=== PATIENT | female | born 1950 | race Caucasian/White ===

== ENCOUNTER → 2017-03-10 | Outpatient (CLI) | payer MEDICARE, OTHER ==
[~2017-03-10] MED LIST: AMOX500C2; CALC-20; MULT-608; PRV20T
--- NOTE | 2017-03-10 15:50 | Diagnostic Imaging Report ---
PROCEDURE: CT right upper extremity without contrast. TECHNIQUE: Multiple contiguous axial images were obtained through the right shoulder without the use of intravenous contrast. Sagittal and coronal reformations were then performed. INDICATION: Right upper extremity tremors. FINDINGS: The glenohumeral and acromioclavicular alignment appear normal. No fractures are identified. The scapula is unremarkable. The right axilla is unremarkable. The visualized right-sided ribs are intact. The soft tissues are unremarkable. IMPRESSION: Unremarkable CT of the right shoulder. Dictated by: Dictated on workstation # [id number]
--- NOTE | 2017-03-10 16:08 | Diagnostic Imaging Report ---
PROCEDURE: CT head and CT cervical spine without contrast. TECHNIQUE: Multiple contiguous axial images were obtained through the brain and cervical spine without the use of intravenous contrast. Sagittal and coronal reformations through the cervical spine were then performed. INDICATION: Right arm tremors. CT BRAIN: No prior studies are available for comparison. The ventricles and sulci are within normal limits. No sulcal effacement, midline shift or hemorrhage is detected. Cisterns are patent. The visualized paranasal sinuses are clear. IMPRESSION: No acute intracranial process is detected. CT CERVICAL SPINE: There is straightening of the normal cervical lordotic curvature. Minimal anterolisthesis of C3 on C4 and C4 on C5 is noted. There is significant degenerative disc disease at the C5-6 and C6-7 levels, with disc space narrowing and marginal spurring. There is also multilevel facet arthropathy. The prevertebral tissues are normal. No fractures are identified. IMPRESSION: Cervical spondylosis. No acute bony abnormality is detected. Report called & faxed to Dr. Hill's office ([place]) at 4:07 p.m. 03/10/2017/dane CT upper extremity report called & faxed as well. Dictated by: Dictated on workstation # [id number]
== END ==
LOC: RAD 14:55
PROVIDERS: ATTEND Internal Medicine
DX: M47.812 Spondylosis without myelopathy or radiculopathy, cervical region (principal); R25.1 Tremor, unspecified
CPT/HCPCS: 70450; 72125; 73200

== ENCOUNTER → 2017-03-13 | Outpatient (CLI) | payer MEDICARE, OTHER ==
--- NOTE | 2017-03-13 11:59 | Diagnostic Imaging Report ---
PROCEDURE: MR imaging cervical spine without contrast. TECHNIQUE: Multiplanar, multisequence MR imaging of the cervical spine was performed without contrast. INDICATION: Neck pain and right arm pain with numbness and tingling for six weeks. No prior studies are available for comparison. There is some straightening of the normal cervical lordotic curvature. The vertebral body marrow signal is normal. No geographic marrow lesion is seen. There is significant degenerative disc disease at C5-C6 and C6-7 levels, with disc space narrowing and desiccation as well as marginal osteophyte formation. The cervical cord demonstrates homogeneous signal intensity and normal morphology. C2-C3, C3-C4 and C4-C5 levels are without evidence of central canal or neuroforaminal stenosis. C5-C6 level is also without central canal or neural foraminal stenosis. C6-C7 demonstrate some uncovertebral joint degenerative change but no significant central canal or neural foraminal narrowing is seen. Disc/osteophyte complex does produce some indentation upon the ventral thecal sac. C7-T1 level is unremarkable. IMPRESSION: Cervical spondylosis, greatest C5-C6 and C6-C7 levels. However, no focal disc protrusion, central canal or neuroforaminal stenosis is identified. Dictated by: Dictated on workstation # [id number]
== END ==
LOC: RAD 07:53
PROVIDERS: ATTEND Nurse Practitioner Family
DX: M47.22 Other spondylosis with radiculopathy, cervical region (principal)
CPT/HCPCS: 72141

== ENCOUNTER → 2017-10-21 | Outpatient (CLI) | payer MEDICARE, OTHER ==
[~2017-10-21] MED LIST changes: +ACHD5005 PO; +AMLODIPINE; +METF-397 PO
--- NOTE | 2017-10-21 16:33 | Diagnostic Imaging Report ---
PROCEDURE: MRI right joint upper extremity without contrast. TECHNIQUE: Multiplanar, multisequence non contrast-enhanced MRI of the right upper extremity was accomplished. INDICATION: Fall approximately one week ago with injury to the right shoulder. FINDINGS: The marrow signal intensity is unremarkable. No definite evidence of fracture is seen. There are hypertrophic degenerative changes of the acromioclavicular joint. The humeral head is high riding with significant narrowing of the acromiohumeral space. The humeral head articulates with the undersurface of the acromion. There is a full thickness incomplete tear of the supraspinatus tendon of the rotator cuff. This appears to be retracted to the level of the glenohumeral joint. In addition, the subscapularis tendon appears to be torn. The bicipital groove is absent of the biceps tendon. Biceps tendon appears to be dislocated medially and appears to be superficial to the subscapularis tendon. There is thickening and a large amount of intermediate signal involving the infraspinatus tendon of the cuff consistent with either partial tear or tendinosis. There is fluid in the joint as well as the subacromial-subdeltoid bursa. IMPRESSION: Complete tear of the supraspinatus tendon of the rotator cuff, which is retracted to the glenohumeral joint. There also appears to be a tear of the subscapularis tendon with medial dislocation of the biceps tendon from the bicipital groove. Partial tear versus tendinosis of the infraspinatus tendon is seen. Dictated by: Dictated on workstation # [id number]
== END ==
LOC: RAD 13:59
PROVIDERS: ATTEND Nurse Practitioner
DX: S46.011A Strain of muscle(s) and tendon(s) of the rotator cuff of right shoulder, initial encounter (principal); M67.814 Other specified disorders of tendon, left shoulder; W19.XXXA Unspecified fall, initial encounter
CPT/HCPCS: 73221

== ENCOUNTER → 2018-08-25 | Outpatient (CLI) | payer MEDICARE, OTHER ==
--- NOTE | 2018-08-25 12:18 | Diagnostic Imaging Report ---
EXAMINATION: Right shoulder MRI without contrast from 08/25/2018. TECHNIQUE: Multiplanar, multisequence non contrast-enhanced MRI of the right upper extremity was accomplished. INDICATION: Right shoulder pain, possible reinjury from heavy lifting. Prior history of right shoulder surgery nine months ago. COMPARISON: 10/21/2017. FINDINGS: There is postoperative change since previous examination with multiple screws and surrounding susceptibility artifact along the humeral head. There is a full-thickness tear involving the supraspinatus tendon which is retracted to the region of the acromioclavicular joint. Secondary superior subluxation of the humeral head is seen in relation to the glenoid. There is diffuse heterogeneity throughout the infraspinatus tendon without retraction posteriorly however there is likely full-thickness extension through the posterior aspect of the infraspinatus tendon, new since previous examination. There is fluid throughout the subdeltoid subacromial bursa and in the glenohumeral joint space. The subscapularis tendon is thinned more so since the previous examination. Retraction is not seen but there is a likely articular-sided partial tear. Previously, biceps dislocation was seen. On today's examination, the proximal biceps tendon is not seen in its intracapsular aspect; possibly due to an interval biceps tenodesis. Correlate with prior surgery. The labrum is not well evaluated on this noncontrast examination. There is some irregularity along the superior labrum which could be degenerative signal however a labral tear is not excluded. Heterogeneity within the glenohumeral joint space is possibly due to postsurgical scarring or areas of synovial proliferation or even hemorrhage if there has been a recent injury. There is atrophy of the supraspinatus, infraspinatus, and to a lesser degree the subscapularis muscles. The axilla is unremarkable. There narrowing and spurring at the acromioclavicular joint. IMPRESSION: 1. Postoperative findings with persistent or new full-thickness tear of the supraspinatus tendon and much of the infraspinatus tendon as well. 2. Articular-sided partial tear of the subscapularis tendon. 3. Likely interval biceps tenodesis, correlate with prior surgical procedure. 4. Heterogeneity within the joint space of uncertain etiology, see above description. Joint effusion and bursal fluid, as described. 5. Degenerative signal within the labrum, a tear difficult to exclude on this noncontrast examination. Dictated by: Dictated on workstation # [id number]
== END ==
LOC: RAD 09:14
PROVIDERS: ATTEND Orthopaedic Surgery
DX: S46.011A Strain of muscle(s) and tendon(s) of the rotator cuff of right shoulder, initial encounter (principal); Z98.890 Other specified postprocedural states
CPT/HCPCS: 73221

== ENCOUNTER → 2020-07-20 | Outpatient (CLI) | payer MEDICARE, OTHER ==
--- NOTE | 2020-07-20 16:41 | Diagnostic Imaging Report ---
INDICATION: Left knee pain. EXAMINATION: AP, oblique and lateral views of the left knee were obtained. FINDINGS: No fracture or acute bony abnormality is seen. There is mild posterior patellar spurring. There is mild medial joint space narrowing with osteophyte formation. Lateral compartment appears preserved. IMPRESSION: Mild degenerative findings of the medial and patellofemoral compartments with no acute abnormality. Dictated by: Dictated on workstation # [id number]
--- NOTE | 2020-07-20 16:43 | Diagnostic Imaging Report ---
INDICATION: Left hip pain. TECHNIQUE: AP and oblique views of the left hip are obtained. FINDINGS: No fracture or acute bony abnormality is seen. There is mild superior acetabular osteophyte formation. There is spurring of the greater trochanter. There is no lytic or blastic lesion. IMPRESSION: Chronic findings as above with no acute abnormality of the left hip. Dictated by: Dictated on workstation # [id number]
== END ==
LOC: RAD 15:54
PROVIDERS: ATTEND Chiropractor
DX: M17.12 Unilateral primary osteoarthritis, left knee (principal); M25.752 Osteophyte, left hip
CPT/HCPCS: 73502; 73562

== ENCOUNTER → 2020-08-15 | Outpatient (CLI) | payer MEDICARE, OTHER ==
--- NOTE | 2020-08-15 15:10 | Diagnostic Imaging Report ---
INDICATION: Routine screening. COMPARISON is made with prior mammograms 04/08/2019 and 08/12/2017. 2-D and 3-D bilateral screening mammography was performed with CAD. Scattered fibroglandular densities are identified bilaterally. Post lumpectomy changes in the left breast are again noted. Lumpectomy site appears to be stable. No new mass or malignant appearing microcalcifications are seen. Axillae are unremarkable. IMPRESSION: BI-RADS Category 2 No mammographic features suspicious for malignancy are identified. ACR BI-RADS Category 2: Benign findings. Result letter will be mailed to the patient. Note: At least 10% of breast cancer is not imaged by mammography. Dictated by: Dictated on workstation # [id number]
== END ==
LOC: RAD 09:00
PROVIDERS: ATTEND Nurse Practitioner Family
DX: Z12.31 Encounter for screening mammogram for malignant neoplasm of breast (principal)
CPT/HCPCS: 77063; 77067

== ENCOUNTER → 2022-08-06 | Outpatient (CLI) | payer MEDICARE, OTHER ==
--- NOTE | 2022-08-06 14:31 | Diagnostic Imaging Report ---
INDICATION: Z78.0, postmenopausal state COMPARISON: 10/27/2000 FINDINGS: AP Spine L1-L4: [BMD (g/cm2): 1.355] [T-Score: 1.3] [Z-Score: 3.2] [BMD Previous: 1.355] [BMD % Change: 0.0] LT Hip Neck: [BMD (g/cm2): 0.829] [T-Score: -1.5] [Z-Score: 0.5] LT Hip Total: [BMD (g/cm2):0.930] [T-Score:-0.6] [Z-Score: 1.2] [BMD Previous: 1.030] [BMD % Change: -9.7*] RT Hip Neck: [BMD (g/cm2):0.833] [T-Score:-1.5] [Z-Score:0.5] RT Hip Total: [BMD (g/cm2):0.930] [T-score:-0.6] [Z-Score:1.2] [BMD Previous:1.041] [BMD % Change:-10.7*] *Indicates significant change from prior examination based on 95% confidence level. World Health Organization criteria for BMD interpretation classify patients as Normal (T-score at or above -1.0), Osteopenic (T-score between -1.0 and -2.5) or Osteoporotic (T-score at or below -2.5). LIMITATIONS AND MODIFICATION: None. FRACTURE RISK (FRAX SCORE): The ten year probability of (%): Major Osteoporotic Fracture: [18.2] Hip Fracture: [8.1] IMPRESSION: 1. Osteopenia (Low bone mass). 2. Bone mineral density within the lumbar spine and bilateral hips has significantly decreased since the prior examination, though the prior exam was in 2000. 3. See below National Osteopor[employer] Foundation guidelines on when to potentially initiate pharmacologic therapy. Based on the National Osteoporosis [employer] Guidelines, pharmacologic treatment should be initiated in any of the following, unless clinical conditions suggest otherwise: * Any patient with prior fragility fracture of the hip or vertebrae. A spine fracture indicates 5X risk for subsequent spine fracture and 2X risk for subsequent hip fracture. * Osteoporosis (T-score <-2.5). * Postmenopausal women and men age 50 and older with low bone mass/osteopenia (T-score between -1.0 and -2.5) by DXA and 10-year major osteoporotic fracture greater than 20% or a 10-year probability of hip fracture greater than 3%. These fracture risks are supplied above in the FRAX score, if applicable. * Clinician judgement and/or patient preferences may indicate treatment for people with 10-year fracture probabilities above or below these levels. Dictated by: Dictated on workstation # [id number]
== END ==
LOC: RAD 12:46
PROVIDERS: ATTEND Nurse Practitioner Family
DX: M85.80 Other specified disorders of bone density and structure, unspecified site (principal); K00-K95 Diseases of the digestive system; Z78.0 Asymptomatic menopausal state
CPT/HCPCS: 77080